=== PATIENT | male | born 1975 | race Caucasian/White ===

== ENCOUNTER 2017-05-05 11:45 | Emergency (ER) | payer BC, OTHER ==
[~2017-05-05] VITALS: Ht 182.9 cm; Wt 79.4 kg
--- NOTE | 2017-05-05 12:00 | NUR ---
Dr Heck at the bedside for eval and exam.
[2017-05-05] MEDS ORDERED: CIPROFLOXACIN 0.3% OPHT OINT 3.5 GM TUBE EACHEYE SCH (12:15)
--- NOTE | 2017-05-05 12:23 | NUR ---
Patient discharged to home in stable conditon. Written and verbal after care instructions given. Patient verbalizes understanding of instructions.
[2017-05-05 12:24] VITALS: BP 115/75
== END 2017-05-05 12:24 | disposition home or self-care (01) ==
LOC: ER 12:13
DX: H10.9 Unspecified conjunctivitis (principal)
CPT/HCPCS: A4663

== ENCOUNTER 2017-08-27 19:59 | Emergency (ER) | payer BC, OTHER ==
[~2017-08-27] VITALS: Ht 182.9 cm; Wt 81.6 kg
[2017-08-27] MEDS ORDERED: CEFTRIAXONE 1 G VIAL IM ONE (20:45)
[2017-08-27] MEDS ORDERED: LIDOCAINE HCL 2% 20 ML VIAL TP ONE (20:45)
[2017-08-27] MEDS ORDERED: LIDOCAINE HCL 2% 20 ML VIAL ONE (21:03)
[2017-08-27] MEDS ORDERED: LIDOCAINE HCL 1% 20 ML VIAL ONE (21:10)
[2017-08-27] MEDS ORDERED: CEFTRIAXONE 1 G VIAL ONE (21:10)
[2017-08-27 21:53] VITALS: BP 131/86
--- NOTE | 2017-08-27 21:53 | NUR ---
Patient discharged to home in stable conditon. Written and verbal after care instructions given. Patient verbalizes understanding of instructions.
== END 2017-08-27 21:56 | disposition home or self-care (01) ==
LOC: ER 19:59
DX: L03.011 Cellulitis of right finger (principal)
CPT/HCPCS: A4217; A4663; J0696; J3490

== ENCOUNTER 2017-08-29 07:26 | Emergency (ER) | payer BC, OTHER ==
[~2017-08-29] VITALS: Ht 182.9 cm; Wt 81.6 kg
--- NOTE | 2017-08-29 07:42 | NUR ---
mse completed, pt d/c'd home, aci given. pt ambulated w/o diff/took all belongings.
[2017-08-29 07:43] VITALS: BP 138/74
== END 2017-08-29 07:44 | disposition home or self-care (01) ==
LOC: ER 07:27
DX: Z48.817 Encounter for surgical aftercare following surgery on the skin and subcutaneous tissue (principal); L03.011 Cellulitis of right finger
CPT/HCPCS: 99283; A4663

== ENCOUNTER 2019-02-12 07:21 | Emergency (ER) | payer OTHER ==
[~2019-02-12] VITALS: Ht 177.8 cm; Wt 77.1 kg
[2019-02-12] MEDS ORDERED: LET TOPICAL SOLUTION 8 ML UDC TOP ONE (09:15)
[2019-02-12] MEDS ORDERED: LIDOCAINE HCL 2% 20 ML VIAL TP ONE (09:15)
[2019-02-12] MEDS ORDERED: LIDOCAINE HCL 2% 20 ML VIAL ONE (09:16)
[2019-02-12] MEDS ORDERED: SODIUM BICARBONATE 4.2 % (NEUT) 5 ML VIAL ONE (09:16)
[2019-02-12] MEDS ORDERED: LET TOPICAL SOLUTION 8 ML UDC ONE (09:16)
[2019-02-12] MEDS: SODIUM BICARBONATE 4.2 % (NEUT) 5 ML VIAL TP ONE ×2 (09:19→09:51)
[2019-02-12] MEDS ORDERED: HYDROCODONE/APAP 5-325MG TABLET ONE (10:27)
[2019-02-12] MEDS ORDERED: HYDROCODONE/APAP 5-325MG TABLET PO ONE (10:30)
--- NOTE | 2019-02-12 10:46 | NUR ---
Patient discharged to home in stable conditon. Written and verbal after care instructions given. Patient verbalizes understanding of instructions.
== END 2019-02-12 10:47 | disposition home or self-care (01) ==
LOC: ER 07:21
DX: S63.237A Subluxation of proximal interphalangeal joint of left little finger, initial encounter (principal); F12.10 Cannabis abuse, uncomplicated; X58.XXXA Exposure to other specified factors, initial encounter; Y93.89 Activity, other specified; Y92.89 Other specified places as the place of occurrence of the external cause; Y99.8 Other external cause status
CPT/HCPCS: 26770; 73130; 73140; 99284; J3490 ×2; A4663